=== PATIENT | male | born 1940 | race Caucasian/White ===

== ENCOUNTER 2017-12-28 11:00 | Inpatient (IN) ==
[2017-12-28] MEDS ORDERED: ATIVAN INJ 2 MG VIAL IVP PRN (11:30)
[2017-12-28] MEDS ORDERED: MORPHINE SULFATE INJ 2 MG INJ IVP PRN (11:30)
[2017-12-28] MEDS ORDERED: LEVSIN ORAL DROPS PO PRN (11:32)
--- NOTE | 2017-12-28 12:51 | DR.UPDATE ---
H&P Update History and Physical Update: History and Physical reviewed and patient examined. H&P 12/23/2017 Changes noted: NO
[2017-12-28 13:20] VITALS: BMI 27.2
[2017-12-29] MEDS ORDERED: ISOPTO ATROPINE ONE (17:37)
[2017-12-29] MEDS: ISOPTO ATROPINE SL SCH ×2 (17:44→21:14)
[2017-12-30] MEDS: ISOPTO ATROPINE SL SCH ×5 (01:54→20:06)
[2017-12-30 21:12] VITALS: BP 80/48
--- NOTE | 2018-01-09 00:20 | PCM.DCPLAN ---
Discharge Summary - Admission Date Date of Admission: 12/28/17 - Discharge Date Discharge Date: 12/30/17 - Admission Diagnoses (1) Acute on chronic renal failure Status: Acute (2) Metastatic renal cell carcinoma Status: Acute - Discharge Diagnoses Discharge Diagnosis: SAME ADMISSION DIAGNOSIS - Discharge Medications Discharge Medications: Prescriptions: - Hospital Course Vital Signs: Temperature 98.5 F Pulse Rate [Left] 100 Respiratory Rate 16 Blood Pressure [Left Arm] 80/48 Blood Pressure [Right Arm] 117/71 Blood Pressure 110/69 O2 Sat by Pulse Oximetry 80 Hospital Course: 78YO MALE WITH METASTATIC RENAL CARCINOMA. HAD ACUTE KIDNEY FAILURE WELL. PATIENT NOT CANDIDATE FOR DIALYSIS. PATIENT ADMITTED TO [facility]. WAS MADE A DNR. CARE AND COMFORT PROVIDED. PATIENT SUCCUMBED TO HIS ILLNESS ON 12/30/17. - Discharge Plan Disposition: 41 AT MEDICAL FAC Condition: Stable - Follow ups/Referrals Follow ups/Referrals: SAMIR MAGNAA [Primary Care Provider] - 1 WEEK - Instructions
== END 2017-12-30 23:15 | disposition expired | DRG 688 ==
LOC: MED/SURG 11:00
PROVIDERS: ADMIT Internal Medicine; ATTEND Internal Medicine
DX: C64.9 Malignant neoplasm of unspecified kidney, except renal pelvis; Z51.5 Encounter for palliative care; Z66 Do not resuscitate